=== PATIENT | male | born 1975 | race Hispanic/Latino ===

== ENCOUNTER 2016-11-24 06:19 | Emergency (ER) | payer BC, OTHER ==
[2016-11-24 07:00] LABS: Bilirubin Negative (Negative); Blood, Urine Large (Negative); Glucose, Urine (Dipstick) Negative (Negative); Ketone, Urine Negative (Negative); Nitrite Negative (Negative); Protein, Urine (Dipstick) Trace mg/dL (Neg-Trace); Urobilinogen 0.2 mg/dL (0.2-1.0)
[2016-11-24 07:01] LABS: Bacteria/HPF None Seen HPF (None Seen); Hyaline Casts/LPF 0-3 HYALINE CAST LPF (0-3 Hyaline); RBC/HPF GREATER THAN 50-TNTC HPF (0-3); Squamous Epithelial None Seen HPF (0-3); WBC/HPF 0-3 HPF (0-3)
[2016-11-24 07:12] LABS: #Basophils 0.1 thou/uL (0.0-0.2); #Eosinphils 0.1 thou/uL (0.0-0.7); #Lymphocytes 2.4 thou/uL (1.20-3.40); #Monocytes 0.4 thou/uL (0.11-0.59); %Basophils 0.9 % (0.0-1.0); %Eosinophils 1.7 % (0.0-10.0); %Lymphocytes 34.4 % (21.0-51.0); %Monocytes 5.7 % (0.0-10.0); Hematocrit 42.8 % (42.0-52.0); Mean Platelet Volume 8.7 fL (7.4-10.4); Red Blood Cell (RBC) Count 4.81 mill/uL (4.70-6.10); White Blood Cell (WBC) Count 6.9 thou/uL (4.8-10.8)
--- NOTE | 2016-11-24 07:34 | CT ---
CT STONE PROTOCOL ABDOMEN AND PELVIS WITHOUT CONTRAST: Date: 11/24/16 HISTORY: Left flank pain since early this morning. COMPARISON: Stone protocol dated 10/07/14. FINDINGS: Lung bases are clear. No pericardial effusion. Moderate diverticular disease sigmoid colon without any active inflammation. No free intraperitoneal gas or fluid. Appendix is visualized and is normal. There is an obstructive calculus proximal left ureter measuring 6.0 x 5.0 mm, 7.5 cm from the ureter opelvic junction. Mild left-sided hydroureter and hydronephrosis. Minimal perinephric stranding. The pancreas is unremarkable. No adenopathy. IMPRESSION: Partially obstructive calculus measuring 6.0 x 5.0 mm proximal left ureter, 7.5 cm distal to uretero pelvic junction. POS: [facility]
[2016-11-24 07:37] LABS: ALT (SGPT) 26 U/L (8-55); AST (SGOT) 24 U/L (5-34); Alkaline Phosphatase 106 U/L (40-150); Anion Gap 12 mmol/L (10-20); BUN (Urea Nitrogen) 11 mg/dL (8.9-20.6); Calc. Creatinine Clearance 0 mL/min (70-130); Calcium 9.4 mg/dL (7.8-10.44); Carbon Dioxide 25 mmol/L (22-29); Chloride 108 mmol/L (98-107); Estimated GFR-MDRD 83; Globulin 3.1 g/dL (2.4-3.5); Protein, Total 7.2 g/dL (6.0-8.3)
[2016-11-24] MEDS ORDERED: Ondansetron HCl/PF 4 MG/2 ML Vial ONE (08:53)
[2016-11-24] MEDS ORDERED: Ketorolac Tromethamine 30 MG/ML VIAL ONE (08:53)
== END 2016-11-24 10:04 | disposition home or self-care (01) ==
LOC: ERS 06:19
DX: N20.1 Calculus of ureter (principal); I10 Essential (primary) hypertension; F17.200 Nicotine dependence, unspecified, uncomplicated; R31.9 Hematuria, unspecified
CPT/HCPCS: 36415; 74176; 80053; 81003; 81015; 85025; 96374; 96375; J1885; J2405

== ENCOUNTER 2017-10-12 16:30 | Outpatient (CLI) | payer BC ==
[2017-10-12 17:08] LABS: #Eosinphils 0.3 thou/uL (0.0-0.7); #Lymphocytes 3.2 thou/uL (1.20-3.40); #Monocytes 0.5 thou/uL (0.11-0.59); #Neutrophils 6.2 thou/uL (1.40-6.50); %Basophils 0.4 % (0.0-1.0); %Eosinophils 2.6 % (0.0-10.0); %Lymphocytes 31.4 % (21.0-51.0); %Monocytes 4.7 % (0.0-10.0); %Neutrophils 60.9 % (42.0-75.0); Hemoglobin 14.6 g/dL (14.0-18.0); Mean Corpuscular Hemoglobin 31.2 pg (27.0-31.0); Mean Corpuscular Volume 86.7 fL (78.0-98.0); Mean Platelet Volume 8.3 fL (7.4-10.4); Platelet Count 158 thou/uL (130-400); RBC Distribution Width 13.4 % (11.5-14.5); Red Blood Cell (RBC) Count 4.69 mill/uL (4.70-6.10); White Blood Cell (WBC) Count 10.1 thou/uL (4.8-10.8)
[2017-10-12 17:22] LABS: PTT 33.4 SEC (22.9-36.1); Prothrombin Time 12.8 SEC (12.0-14.7)
[2017-10-12 17:32] LABS: Anion Gap 10 mmol/L (10-20); BUN (Urea Nitrogen) 14 mg/dL (8.9-20.6); Calc. Creatinine Clearance 0 mL/min (70-130); Calcium 9.4 mg/dL (7.8-10.44); Carbon Dioxide 27 mmol/L (22-29); Chloride 106 mmol/L (98-107); Estimated GFR-MDRD 70; Glucose 96 mg/dL (70-105); Potassium 3.6 mmol/L (3.5-5.1); Sodium 139 mmol/L (136-145)
--- NOTE | 2017-10-14 16:52 | EKG ---
Test Reason : Blood Pressure : / mmHG Vent. Rate : 080 BPM Atrial Rate : 080 BPM P-R Int : 168 ms QRS Dur : 104 ms QT Int : 354 ms P-R-T Axes : 019 026 -08 degrees QTc Int : 408 ms Normal sinus rhythm with sinus arrhythmia Non-specific intra-ventricular conduction delay Inferior infarct , age undetermined cannot be excluded Abnormal ECG Confirmed by EBTHEL PONCE ([id number]) on 10/14/2017 4:51:43 PM Referred By: MARIELA Confirmed By:BETHEL PONCE
== END 2017-10-12 16:31 | disposition home or self-care (01) ==
LOC: LABBT 16:30
PROVIDERS: ATTEND Surgery
DX: Z01.818 Encounter for other preprocedural examination (principal); M51.16 Intervertebral disc disorders with radiculopathy, lumbar region
CPT/HCPCS: 80048; 85025; 85610; 85730; 93005; 93010

== ENCOUNTER 2017-10-19 12:47 | Day surgery (SDC) | payer BC ==
[2017-10-19] MEDS ORDERED: CEFAZOLIN/Water 2 GM/20 ML SYRINGE ONE (13:29)
[2017-10-19] MEDS ORDERED: PHENYLEPHRINE-NS 100 MCG/ML 10 ML SYRINGE ONE ×2 (13:35→17:27)
[2017-10-19] MEDS ORDERED: Dexamethasone 20 MG/5 ML VIAL ONE (13:35)
[2017-10-19] MEDS ORDERED: Ondansetron HCl/PF 4 MG/2 ML Vial ONE (13:35)
[2017-10-19] MEDS ORDERED: PROPOFOL 200 MG/20 ML VIAL ONE (13:35)
[2017-10-19] MEDS ORDERED: Glycopyrrolate 0.2 MG/ML 5 ML SYRINGE ONE (13:35)
[2017-10-19] MEDS ORDERED: PROVENTIL INHALER 6.7 G (200 INHALATIONS) ONE (13:35)
[2017-10-19] MEDS ORDERED: Lidocaine 1% PF 5 ML VIAL ONE (13:35)
[2017-10-19] MEDS ORDERED: Midazolam HCl 2 mg/2 ml Vial ONE (14:31)
[2017-10-19] MEDS ORDERED: Bacitracin Zinc Ointment 30 gm TUBE ONE (16:05)
[2017-10-19] MEDS ORDERED: Thrombin 5000 UNITS/5 ML VIAL ONE (16:05)
[2017-10-19] MEDS ORDERED: Sodium Chloride 0.9% 10 ML ONE (16:05)
[2017-10-19] MEDS ORDERED: hydrALAZINE 20 MG/ML VIAL ONE (16:19)
[2017-10-19] MEDS ORDERED: Midazolam HCl 5 mg/5 ml Vial ONE (16:20)
[2017-10-19] MEDS ORDERED: Fentanyl 100 MCG/2 ML VIAL ONE ×4 (16:30→21:10)
[2017-10-19] MEDS ORDERED: Phenylephrine HCL 10 MG/ML VIAL ONE (17:22)
[2017-10-19] MEDS ORDERED: Promethazine HCl 25 MG/ML VIAL IM PRN ×2 (18:15→19:15)
[2017-10-19] MEDS ORDERED: Ondansetron HCl/PF 4 MG/2 ML Vial IVP PRN (18:15)
[2017-10-19] MEDS ORDERED: Promethazine HCl 25 MG/ML VIAL SLOW IVP PRN (18:15)
[2017-10-19] MEDS ORDERED: HYDROmorphone 2 MG/ML VIAL SLOW IVP PRN (18:15)
[2017-10-19] MEDS ORDERED: Morphine Sulfate 2 MG/ML SYRINGE SLOW IVP PRN (18:15)
[2017-10-19] MEDS ORDERED: Albuterol Sulfate HFA (OR ONLY) ONE (18:55)
[2017-10-19] MEDS ORDERED: Mag-Al 1200 mg/1200 mg/30 ML UDCUP PO PRN (19:15)
[2017-10-19] MEDS ORDERED: Acetaminophen 325 MG TAB PO PRN (19:15)
[2017-10-19] MEDS ORDERED: Fleet Enema 133 ML BOT PR PRN (19:15)
[2017-10-19] MEDS ORDERED: Milk Of Magnesia 30 ML UDCUP PO PRN (19:15)
[2017-10-19] MEDS ORDERED: traMADol HCl 50 MG TAB PO PRN (19:15)
[2017-10-19] MEDS ORDERED: Acetaminophen/Codeine 30-300mg Tablet PO PRN (19:15)
[2017-10-19] MEDS ORDERED: Bisacodyl 10 MG SUPP PR PRN (19:15)
[2017-10-19] MEDS ORDERED: Cyclobenzaprine 10 MG TAB PO PRN (19:16)
[2017-10-19] MEDS ORDERED: HYDROmorphone 2 MG/ML VIAL ONE (19:34)
[2017-10-19] MEDS ORDERED: Zolpidem Tartrate 5 MG TAB PO SCH (21:00)
[2017-10-19] MEDS ORDERED: Escitalopram Oxalate 10 mg Tablet PO SCH (21:00)
[2017-10-19] MEDS ORDERED: CEFAZOLIN/Water 2 GM/20 ML SYRINGE SLOW IVP SCH (22:00)
[2017-10-19] MEDS: HYDROcodone/Acetaminophen 7.5/325 mg Tablet PO PRN (22:33)
[2017-10-19] MEDS: Methimazole 10 MG TAB PO SCH (22:34)
[2017-10-19] MEDS: Sodium Chloride 0.9% 1,000 ML IV SCH (22:36)
[2017-10-20] MEDS: CEFAZOLIN/Water 2 GM/20 ML SYRINGE SLOW IVP SCH ×2 (00:31→08:57)
[2017-10-20 01:18] VITALS: BMI 46.6
[2017-10-20] MEDS: HYDROcodone/Acetaminophen 7.5/325 mg Tablet PO PRN (06:46)
[2017-10-20 08:27] VITALS: BP 105/66; TEMP 97.9
[2017-10-20] MEDS: Methimazole 10 MG TAB PO SCH (08:57)
[2017-10-20] MEDS: Sodium Chloride 0.9% 1,000 ML IV SCH (08:57)
[2017-10-20] MEDS ORDERED: Losartan 25 MG TAB PO SCH (09:00)
--- NOTE | 2017-10-20 09:55 | PRG ---
DATE OF SERVICE: 10/20/2017 Mr. Oseguera is doing well, postoperative day 1 from L4-L5, L5-S1 laminectomies with right-sided diske ctomies. His leg pain is improved compared to before surgery. Neurologically is doing well. We bhumi t over both intra and postoperative issues. He will be dismissed.
--- NOTE | 2017-10-20 10:04 | OP ---
DATE OF SURGERY: 10/19/2017. PREPROCEDURE DIAGNOSES: Low back with right greater than left lower extremity pain, lumbar stenosis with disk extrusion at L4-L5, L5-S1. POSTPROCEDURE DIAGNOSES: Low back with right greater than left lower extremity pain, lumbar stenosis with disk extrusion at L4-L5, L5-S1. SURGEON: Vignesh Abreu M.D. GREEN CHAIN MARKER: Bryan Brar PA-C. WOUND TYPE: Type 1 wound. PROCEDURE PERFORMED: 1. L4-L5, L5-S1 laminectomies, partial facetectomies with right-sided diskectomies L4-L5, L5-S1. 2. Use of operative microscope for microdissection. DESCRIPTION OF PROCEDURE: After informed consent was obtained from the patient, [facility]. Proper patient pause and identification was carried out. He was then placed in excell ent general endotracheal anesthesia and positioned prone on the OR table. All appropriate points wer e padded. We identified the L4-L5, L5-S1 dorsal spines. A linear kelly was made over this region. T his area was sterilely cleansed, prepared, and draped. Proper patient pause and identification was c arried out. The wound was then opened with a combination of sharp, monopolar and blunt dissection. The L4-L5, L5-S1 dorsal spines and lamina were exposed. Localization film confirmed our area of inte rest. We then performed L4-L5, L5-S1 laminectomies, partial facetectomies and foraminotomies. We th en used the operative microscope worked over the shoulder of the right L5 and the right S1 nerve root s and diskectomies at the right L4-L5, right L5-S1 were performed. Soft fragments were removed at [facility] L4-L5, it was more difficult at right L5-S1 as it was a bit more osteophytic. We had excellent d ecompression of the common dural tube, the L4, L5, S1 nerve roots bilaterally. There was no spinal f luid leak. Copious irrigation occurred throughout, as did maximizing hemostasis. The wound was then closed in anatomic layers following the sprinkling of vancomycin powder. The patient then emerged f rom anesthesia.
== END 2017-10-20 12:20 | disposition home or self-care (01) ==
LOC: SDC 12:47 → SURG A 19:15 → SDC 10-20 12:20
PROVIDERS: ATTEND Surgery
PROC: 01NB0ZZ Release Lumbar Nerve, Open Approach (ICD-10-PCS; principal; 2017-10-19)
PROC: 0SB20ZZ Excision of Lumbar Vertebral Disc, Open Approach (ICD-10-PCS; principal; 2017-10-19)
DX: M48.061 Spinal stenosis, lumbar region without neurogenic claudication (principal); M51.16 Intervertebral disc disorders with radiculopathy, lumbar region; M51.27 Other intervertebral disc displacement, lumbosacral region; Z91.041 Radiographic dye allergy status
CPT/HCPCS: 76001; 96374; 96375; A4216; J0131; J0360; J1100; J1170; J2001; J2250; J2270; J2370; J2405; J2704; J3010; J3370; J3490

== ENCOUNTER 2019-07-24 13:36 | Outpatient (CLI) | payer OTHER, BC ==
--- NOTE | 2019-07-24 17:08 | CT ---
CT OF THE ABDOMEN AND PELVIS WITHOUT IV CONTRAST: 07/24/19 INDICATION: History of left sided flank pain. COMPARISON: CT renal calculus evaluation dated at 11/24/16 at [facility]. FINDINGS: No definite ureteral calculus or hydronephrosis is demonstrated. There is a 3 mm calculus within the superior pole of the left kidney which is new from the prior exam . No right sided renal or ureteral calculus is evident. There is prominent fatty liver. Gallbladder is decompressed. Pancreas, adrenal and spleen appear with in normal limits. No free fluid is evident. There is a normal appendix in the right lower quadrant. There is scattered colonic diverticula withou t evidence of active diverticulitis. Small bowel is normal appearing. There is a fat containing umbil ical hernia. There are laminectomy changes involving the lower lumbar spine. No definite acute osseous abnormality evident. IMPRESSION: 1. Left nephrolithiasis. No ureteral calculus or hydronephrosis is demonstrated. 2. Prominent fatty liver. 3. Colonic diverticulosis without evidence of active diverticulitis. POS: [facility]
== END 2019-07-24 13:37 | disposition home or self-care (01) ==
LOC: BICCT 13:36
PROVIDERS: ATTEND Family Medicine
DX: N20.2 Calculus of kidney with calculus of ureter (principal); K76.0 Fatty (change of) liver, not elsewhere classified; K57.30 Diverticulosis of large intestine without perforation or abscess without bleeding
CPT/HCPCS: 74176

== ENCOUNTER 2019-08-31 11:40 | Outpatient (CLI) | payer BC ==
--- NOTE | 2019-08-31 13:20 | MRI ---
MRI Lumbar Spine WO Con History: Sciatica and leg pain Comparison: Lumbar spine radiograph 2 days prior Findings: Aortic contour is nonaneurysmal. No hydronephrosis. No retroperitoneal periaortic adenopath y. Laminectomy changes at L4-L5 with adjacent scar. The conus medullaris terminates near the superior endplate of L1. Levels are as follows: L1/L2: Normal disc height and hydration. No neural foraminal or spinal canal narrowing. L2/L3: Normal disc height with minimal desiccation. Minimal disc bulge. Low-grade facet arthropathy. No neural foraminal or spinal canal narrowing. L3/L4: Normal disc hydration. Minimal disc bulge. No significant neural foraminal or spinal canal jenelle rowing. L4/L5: Moderate degenerative disc space height loss is circumferential disc osteophyte complex. Throm bosis disc protrusion right lateral recess and paracentral zone. This does abut the right L5 traversing nerve root. Moderate to severe right and moderate left neural foraminal narrowing. Moderat e hypertrophic facet arthrosis. L5/S1: Moderate to severe posterior degenerative disc space height loss. Large circumferential disc o steophyte complex with very irregular central zone. Extensive horizontal and radial annular fissuring. Severe left and moderate to severe right neural foraminal narrowing with abutment of both exiting and traversing nerve roots. Moderate to severe facet arthropathy. Impression: 1. High-grade spondylosis L4/L5 and L5/S1 with neural foraminal narrowing and nerve root abutment. 2. Mild progressive edema of the left L5 pars interarticularis from the 2017 MRI exam, stress related .
== END 2019-08-31 11:41 | disposition home or self-care (01) ==
LOC: MRI 11:40
PROVIDERS: ATTEND Surgery
DX: M54.40 Lumbago with sciatica, unspecified side (principal); M79.606 Pain in leg, unspecified; R60.0 Localized edema; M47.816 Spondylosis without myelopathy or radiculopathy, lumbar region; M47.817 Spondylosis without myelopathy or radiculopathy, lumbosacral region; M43.06 Spondylolysis, lumbar region; M48.061 Spinal stenosis, lumbar region without neurogenic claudication; M48.07 Spinal stenosis, lumbosacral region
CPT/HCPCS: 72148; 72158

== ENCOUNTER 2022-10-15 06:56 | Emergency (ER) | payer BC, OTHER ==
[2022-10-15 07:33] LABS: #Eosinphils 0.2 thou/uL (0.0-0.7); #Monocytes 0.7 thou/uL (0.11-0.59); #Neutrophils 8.7 thou/uL (1.40-6.50); %Basophils 0.3 % (0.0-1.0); %Eosinophils 1.3 % (0.0-10.0); %Lymphocytes 19.8 % (21.0-51.0); %Monocytes 5.6 % (0.0-10.0); %Neutrophils 72.6 % (42.0-75.0); Hemoglobin 14.2 g/dL (14.0-18.0); Mean Corpuscular HGB CONC 34.6 g/dL (32.0-36.0); Mean Corpuscular Hemoglobin 30.2 pg (27.0-31.0); Mean Corpuscular Volume 87.2 fl (78.0-98.0); Mean Platelet Volume 10.5 fL (7.4-10.4); Platelet Count 157 10x3/uL (130-400); RBC Distribution Width 13.5 % (11.5-14.5)
[2022-10-15 07:48] LABS: Bacteria/HPF None Seen HPF (None Seen); Bilirubin Negative (Negative); Blood, Urine Negative (Negative); CAUTI Indications for Culture Dysuria,urgency,freq; Clarity Clear (Clear); Glucose, Urine (Dipstick) Normal (Negative); Ketone, Urine Negative (Negative); Leukocyte Negative Leu/uL (Negative); Nitrite Negative (Negative); Protein, Urine (Dipstick) Negative (Neg-Trace); RBC/HPF 0-3 HPF (0-3); Specific Gravity, Urine 1.019 (1.002-1.036); Squamous Epithelial None Seen HPF (0-3); Urobilinogen Normal mg/dL (Less than 2); WBC/HPF 0-3 HPF (0-3)
[2022-10-15 07:50] LABS: Urine Culture Reflex No No
[2022-10-15 08:18] LABS: ALT (SGPT) 33 U/L (8-55); AST (SGOT) 22 U/L (5-34); Albumin 4.1 g/dL (3.5-5.0); Alkaline Phosphatase 93 U/L (40-110); Anion Gap 13 mmol/L (10-20); BUN (Urea Nitrogen) 10 mg/dL (8.9-20.6); Bilirubin, Total 1.4 mg/dL (0.2-1.2); Calc. Creatinine Clearance 0 mL/min (70-130); Calcium 9.2 mg/dL (7.8-10.44); Carbon Dioxide 24 mmol/L (22-29); Chloride 106 mmol/L (98-107); Estimated GFR 101; Globulin 3.1 g/dL (2.4-3.5); Glucose 150 mg/dL (70-105); Lipase 13 U/L (8-78); Potassium 3.3 mmol/L (3.5-5.1); Protein, Total 7.2 g/dL (6.0-8.3); Sodium 140 mmol/L (136-145)
[2022-10-15] MEDS ORDERED: methylPREDNISolone Sod Succ 40 MG VIAL ONE (08:46)
[2022-10-15] MEDS ORDERED: diphenhydrAMINE 50 MG/ML VIAL ONE (08:46)
[2022-10-15] MEDS ORDERED: Famotidine/PF 20 mg/2ml Vial ONE (08:46)
[2022-10-15] MEDS ORDERED: Morphine 4 MG/ML VIAL ONE (09:24)
[2022-10-15] MEDS ORDERED: Ondansetron PF 4 MG/2 ML Vial ONE (09:29)
[2022-10-15] MEDS ORDERED: Iopamidol-370 76% 500 ML MDV (1 ML CHARGE) ONE (10:08)
== END 2022-10-15 10:57 | disposition home or self-care (01) ==
LOC: ERS 06:56
DX: K57.92 Diverticulitis of intestine, part unspecified, without perforation or abscess without bleeding (principal); I10 Essential (primary) hypertension; E03.9 Hypothyroidism, unspecified; Z79.899 Other long term (current) drug therapy
CPT/HCPCS: 36415; 74177; 80053; 81001; 83690; 85025; 96361; 96374; 96375; J1200; J2270; J2405; J2920; Q9967; S0028

== ENCOUNTER 2023-08-11 06:11 | Day surgery (SDC) | payer OTHER ==
[2023-04-08 12:14] VITALS: BMI 45.4
[2023-08-11] MEDS ORDERED: PROPOFOL 20 ML ONE ×3 (07:14→08:06)
[2023-08-11] MEDS ORDERED: Midazolam HCl 2 mg/2 ml Vial ONE (07:15)
[2023-08-11] MEDS ORDERED: Metoclopramide HCl 10 MG (2 mL) VIAL ONE (07:42)
[2023-08-11] MEDS ORDERED: Ondansetron PF 4 MG/2 ML Vial ONE (07:42)
[2023-08-11] MEDS ORDERED: Lidocaine 1% PF 5 ML VIAL ONE (07:42)
== END 2023-08-11 09:20 | disposition home or self-care (01) ==
LOC: SDC 06:11
PROVIDERS: ATTEND Internal Medicine Gastroenterology
PROC: 0DBL8ZZ Excision of Transverse Colon, Via Natural or Artificial Opening Endoscopic (ICD-10-PCS; principal; 2023-08-11)
DX: Z12.11 Encounter for screening for malignant neoplasm of colon (principal); D12.3 Benign neoplasm of transverse colon; K57.30 Diverticulosis of large intestine without perforation or abscess without bleeding; K64.8 Other hemorrhoids; M19.90 Unspecified osteoarthritis, unspecified site; E11.9 Type 2 diabetes mellitus without complications; I10 Essential (primary) hypertension; E66.01 Morbid (severe) obesity due to excess calories; G47.30 Sleep apnea, unspecified; E78.5 Hyperlipidemia, unspecified; Z68.42 Body mass index [BMI] 45.0-49.9, adult; Z79.84 Long term (current) use of oral hypoglycemic drugs; Z79.899 Other long term (current) drug therapy; Z91.041 Radiographic dye allergy status
CPT/HCPCS: 88305; J2250; J2405; J2704; J2765